=== PATIENT | male | born 1985 ===

== ENCOUNTER 2020-10-10 18:49 | Emergency (ER) | payer MEDICAID ==
[~2020-10-10] VITALS: Ht 182.9 cm; Wt 169.5 kg
[2020-10-10 19:13] VITALS: BP 136/88; Ht 182.9 cm; Wt 169.5 kg
[2020-10-10] MEDS ORDERED: LUNESTA1 MG (19:19)
[2020-10-10] MEDS ORDERED: ZOLOFT100 MG PO (19:20)
[2020-10-10] MEDS ORDERED: LITHIUM CARBON300 MG PO (19:20)
[2020-10-10] MEDS ORDERED: ADDERALL 20 MG20 M1 PO (19:20)
[2020-10-10] MEDS ORDERED: ADIPEX-P37.5 MG PO (19:20)
[2020-10-10] MEDS ORDERED: PROVENTIL/2.5 MG/3 M INH (19:21)
[2020-10-10] MEDS ORDERED: ZANAFLEX2 M1 PO (19:21)
[2020-10-10] MEDS ORDERED: VOLTAREN75 MG PO (19:21)
[2020-10-10] MEDS ORDERED: MEDROL DOSE PACK4 MG PO (19:21)
[2020-10-10] MEDS ORDERED: ANDROGEL5 GM TP (19:22)
[2020-10-10 20:12] LABS: BASOPHILS 0.2 % (0-2); EOSINOPHILS 1.8 % (0-7); HEMATOCRIT 41.7 % (42.0-54.0); HEMOGLOBIN 13.5 g/dL (13.5-17.5); IMMATURE GRANULOCYTES 0.2 % (0-5); LYMPHOCYTE ABS# 1.37 10x3/uL (1.32-3.57); LYMPHOCYTES 9.6 % (15-50); MCH 32.1 pg (26.0-34.0); MCHC 32.4 g/dL (31.0-37.0); MEAN PLATELET VOLUME 10.3 fL (7.4-10.4); MONOCYTES 9.3 % (2-11); NEUTROPHILS 78.9 % (40-80); PLATELET COUNT 184 10x3/uL (130-400); RBC 4.21 10x6/uL (4.20-6.10); RDW 13.8 % (11.5-14.5); WBC 14.2 10x3/uL (4.8-10.8)
[2020-10-10 20:21] LABS: CALC OSMOLALITY 274 mosm/kg (275-300); CALCIUM 9.3 mg/dL (8.5-10.1); CHLORIDE - SERUM 102 mmol/L (98-107); CREATININE - SERUM 1.1 mg/dL (0.6-1.3); GLUCOSE 110 mg/dL (74-106); POTASSIUM - SERUM 4.6 mmol/L (3.5-5.1); SODIUM 137 mmol/L (136-145); UREA NITROGEN 12 mg/dL (7-18); eGFR NON AFRICAN AMERICAN 81 mL/min (90-120)
[2020-10-10 20:47] LABS: ALBUMIN 3.8 g/dL (3.4-5.0); ALKALINE PHOSPHATASE 61 U/L (30-120); ALT (SGPT) 52 U/L (10-68); BILIRUBIN - TOTAL 0.69 mg/dL (0.2-1.3); CKMB 2.2 U/L (0.0-3.6); CREATINE KINASE 234 UL (21-232); MAGNESIUM - SERUM 2.4 mg/dL (1.8-2.4); PROTEIN - SERUM 7.6 g/dL (6.4-8.2); THYROID STIMULATING HORMONE 2.39 uIU/mL (0.36-3.74)
[2020-10-10 21:50] LABS: UDS - AMPHET POSITIVE QUAL (NEGATIVE); UDS - BARB NEGATIVE QUAL (NEGATIVE); UDS - BENZO NEGATIVE QUAL (NEGATIVE); UDS - COCAINE NEGATIVE QUAL (NEGATIVE); UDS - OPIATE NEGATIVE QUAL (NEGATIVE); UDS - PCP NEGATIVE QUAL (NEGATIVE); UDS - THC NEGATIVE QUAL (NEGATIVE)
[2020-10-10 21:52] LABS: BILIRUBIN NEGATIVE (NEGATIVE); KETONE NEGATIVE (NEGATIVE); NITRITE NEGATIVE (NEGATIVE); UROBILINOGEN NORMAL mg/dL (< 2)
[2020-10-10 21:53] LABS: WHITE CELLS - URINE 0-5 HPF (0-1)
== END 2020-10-10 22:18 | disposition home or self-care (01) ==
LOC: D.ER 18:49
PROVIDERS: Family Medicine
DX: R41.82 Altered mental status, unspecified (principal)